=== PATIENT | female | born 1940 | race Native Hawaiian/Other Pacific Islander ===

== ENCOUNTER 2019-07-25 10:41 | Inpatient (IN) | payer OTHER ==
[~2019-07-25] VITALS: Ht 157.5 cm; Wt 65.6 kg
[2019-07-25 12:00] VITALS: BP 119/63; TEMP 98.6
[2019-07-25 12:44] LABS: PLATELET COUNT 340 K/uL (152-353)
[2019-07-25 13:22] LABS: POTASSIUM 3.7 mmol/L (3.6-5.2)
[2019-07-25 14:15] VITALS: BP 119/63; TEMP 98.6; Ht 157.5 cm; Wt 65.6 kg
--- NOTE | 2019-07-25 14:22 | NUR ---
1400 PPPP ROUNDING: PT IS ABLE TO USE THE BATHROOM ON HER OWN WITH MINIMAL ASSISTANCE. PT IS LAYING IN BED ASLEEP POSITIONED ON HER RIGHT SIDE, BED IS LOWERED AND LOCKED WITH THE CALL LIGHT WITHIN REACH.
--- NOTE | 2019-07-25 15:50 | NUR ---
1545 DR ALLISON IN ROOM AT THIS TIME. NEW ORDERS REC'D AND TELE APPLIED AT THIS TIME.
[2019-07-25 16:00] VITALS: BP 123/67; TEMP 101.8
--- NOTE | 2019-07-25 18:03 | NUR ---
1211 INFORMED PT HAD NOT VOIDED SINCE ADMISSION. ENCOURAGED PT TO GET UP TO ATTEMPT TO VOID. PT STATED SHE HAS NOT HAD ENOUGH OF INTAKE TO BE ABLE TO VOID. WILL CON'T TO MONIOTR
[2019-07-25] MEDS ORDERED: SPIRIVA HANDIH18 MCG INH (18:12)
[2019-07-25 20:00] VITALS: BP 103/47; TEMP 100.2
[2019-07-26] VITALS: BP 110/46; TEMP 99.5
[2019-07-26 04:01] VITALS: BP 122/62; TEMP 100.5
[2019-07-26 05:11] LABS: PLATELET COUNT 270 K/uL (152-353)
[2019-07-26 05:37] LABS: POTASSIUM 3.4 mmol/L (3.6-5.2)
[2019-07-26 08:00] VITALS: BP 116/63; TEMP 99.2
[2019-07-26 12:00] VITALS: BP 117/55; TEMP 98.6
[2019-07-26 16:00] VITALS: BP 119/62; TEMP 97.9
[2019-07-26 20:00] VITALS: BP 126/62; TEMP 102.4
[2019-07-27 00:24] VITALS: BP 106/53; TEMP 99.5
--- NOTE | 2019-07-27 03:30 | NUR ---
PT HAVING MULTIPLE BM'S THIS NIGHT. STOOL POSITIVE FOR C-DIFF.
--- NOTE | 2019-07-27 03:31 | NUR ---
07/26/19 2300: PT STRAIT CATHED FOR URINE SPECIMEN. PT TOLERATED WELL.
[2019-07-27 04:00] VITALS: BP 115/73; TEMP 100.6
[2019-07-27 05:10] LABS: PLATELET COUNT 257 K/uL (152-353)
--- NOTE | 2019-07-27 05:23 | NUR ---
07/27/19 0520: LAB CALLED WITH CRITICAL WBC OF 25.5. ER NOTIFIED OF RESULTS. NO ORDER RECEIVED.
[2019-07-27 05:26] LABS: POTASSIUM 4.1 mmol/L (3.6-5.2)
[2019-07-27 08:00] VITALS: BP 126/72; TEMP 98.7
[2019-07-27 12:00] VITALS: BP 116/64; TEMP 98.6
[2019-07-27 16:00] VITALS: BP 117/60; TEMP 98.7
--- NOTE | 2019-07-27 19:55 | NUR ---
PRN BREATHING TX. NOT NEEDED AT THIS TIME. PTS O2 SAT IS 98% ON RA. AND BREATHS WERE CLEAR THROUGHOUT WITH NO RD NOTED.
[2019-07-27 20:00] VITALS: BP 108/55; TEMP 98.4
--- NOTE | 2019-07-27 22:00 | NUR ---
Pt is resting in bed with eyes opened at this time. Uses call light for assistance with tramsfer to bsc. No acute distress or c/o pain or discomfort voiced by pt. Call light is within reach. Will continue to monitor.
[2019-07-28] VITALS (7 sets, daily range): BP systolic 11–133; BP diastolic 54–71; TEMP 97.9–98.5
[2019-07-28 04:11] LABS: PLATELET COUNT 248 K/uL (152-353)
[2019-07-28 04:28] LABS: POTASSIUM 3.4 mmol/L (3.6-5.2)
--- NOTE | 2019-07-28 04:30 | NUR ---
Lab called to report critical wbc lab value of 20.1. Lab value is trending down from previous 25.5. Will continue to monitor.
--- NOTE | 2019-07-28 21:57 | NUR ---
Patient is resting with eyes opened at this time. No acute distress noted. Call light is within reach and pt uses call light for assistance with transfers to bsc. Prn pericare is provided and barrier cream is being applied to pts buttocks. Bed is in low position. Will continue to monitor.
--- NOTE | 2019-07-29 03:09 | NUR ---
Pt calls for assistance to bsc. Continues to have small amount of loose bm this shift. Barrier cream is being applied to red area on pts buttocks. Medi- honey ointment was applied to open area between 4 and 5 toes on right foot. Area was covered with 4 x 4 and secured with paper tape. Pt stated, " that the area has been opened on right foot for a couple of years". Pt's gown was changed and pt was wiped down with wet cloth and hair was combed. No acute distress noted. Call light is within reach, and bed is in low position. Will continue to monitor.
[2019-07-29 04:00] VITALS: BP 121/68; TEMP 98.2
[2019-07-29 04:41] LABS: PLATELET COUNT 276 K/uL (152-353)
[2019-07-29 04:47] LABS: POTASSIUM 3.6 mmol/L (3.6-5.2)
[2019-07-29 08:00] VITALS: BP 126/66; TEMP 98.4
--- NOTE | 2019-07-29 11:10 | NUR ---
DAUGHTER CALLED NURSE TO PATIENTS ROOM. UPON ENTERING PATIENTS ROOM PATIENT NOTED VOMITING. APPROX. 200 ML OF YELLOW EMESIS NOTED WITH FOOD PARTICLES. PATIENT GIVEN ZOFRAN 4MG IV PUSH. IV FLUIDS DISCONTINUED PER AND STAT CHEST X-RAY ORDERED. PATIENT REPOSITIONED UP IN HIGH FOWLERS POSITION NOTED O2 SATS 96% ON RA, RR-21.
[2019-07-29 12:00] VITALS: BP 108/63; TEMP 97.8
--- NOTE | 2019-07-29 12:34 | NUR ---
IN THE PATIENTS ROOM AND ORDERED FOR PATIENT TO GET AN ADDITIONAL ZOFRAN 4 MG IV PUSH. ZOFRAN GIVEN ORDERED. APPROX 100 ML OF YELLOW EMESIS NOTED. WILL CONTINUE TO MONITOR FOR NO NAUSEA
[2019-07-29 16:00] VITALS: BP 124/70; TEMP 98.1
[2019-07-29 20:00] VITALS: BP 110/56; TEMP 98.1
--- NOTE | 2019-07-29 22:00 | NUR ---
Pt resting in bed with eyes opened. No acute distress noted. Pt uses call light to call for assistance to transfer to bs. Prn ruma-care is provided and barrier cream is applied to buttocks for redness and irritation. Medi-honey ointment is being applied to opened area between 4 & 5th toes on right foot, and covered with gauze and secured with paper tape. IV site to left forearm is saline locked, and flushed with no problems. Pt stated, "that she continues to feel better and is ready to go home". No acute distress noted or c/o pain or discomfort voiced, bed is in low position, and call light within reach. Will continue to monitor.
[2019-07-30] VITALS: BP 122/62; TEMP 97.7
--- NOTE | 2019-07-30 01:49 | NUR ---
Pt resting with eyes opened at this time. Took po and iv abx but refused Colestyramine powder mixed with apple juice, and stated, "that she felt as if drinking it would make her nauseous. But stated also, "that she was otherwise okay". Pt continues to use call light for assistance with transfers to bsc. No bm's noted or reported so far this shift. Will continues to monitor. Call light is within reach and bed is in low position.
[2019-07-30 04:00] VITALS: BP 124/67; TEMP 98
[2019-07-30 04:31] LABS: PLATELET COUNT 318 K/uL (152-353)
[2019-07-30 04:44] LABS: POTASSIUM 3.5 mmol/L (3.6-5.2)
[2019-07-30 08:00] VITALS: BP 144/63; TEMP 98.1
[2019-07-30 12:00] VITALS: BP 139/69; TEMP 97.8
--- NOTE | 2019-07-30 15:22 | NUR ---
PATIENTS IV IN HER LEFT HAND INFULTRATED. NS WAS RUNNING AT 100 ML/HR. PATIENTS HAND WAS ELIVATED AND A WARM COMPRESS WAS PUT ON IT. PATIENT STATES SHE IS IN NO PAIN
[2019-07-30 16:00] VITALS: BP 119/70; TEMP 95.7
[2019-07-30 20:00] VITALS: BP 115/60; TEMP 98.2
[2019-07-31] VITALS: BP 130/66; TEMP 98
[2019-07-31 04:00] VITALS: BP 141/69; TEMP 97.9
[2019-07-31 08:00] VITALS: BP 138/68; TEMP 97.4
[2019-07-31 12:00] VITALS: BP 142/64; TEMP 98.4
[2019-07-31] MEDS ORDERED: Vancocin HCl 125MG C PO (14:44)
--- NOTE | 2019-07-31 15:16 | NUR ---
DR ALLISON DISCONTINUED THE TELEMETRY. PATIENT IS TOLERATING IT WELL
--- NOTE | 2019-07-31 16:43 | NUR ---
PATIENT ASKED FOR SOME MAALOX BEFORE SHE WAS DISCHAREGED AND DR ALLISON ORDER 30MLS OF MAALOX
== END 2019-07-31 16:23 | disposition home or self-care (01) | DRG 372 ==
LOC: MED/SURG 10:41
PROVIDERS: ADMIT Internal Medicine
DX: A04.72 Enterocolitis due to Clostridium difficile, not specified as recurrent (principal); N39.0 Urinary tract infection, site not specified; E86.0 Dehydration; K21.9 Gastro-esophageal reflux disease without esophagitis; M15.8 Other polyosteoarthritis; R62.7 Adult failure to thrive; D72.828 Other elevated white blood cell count; J44.9 Chronic obstructive pulmonary disease, unspecified; N81.10 Cystocele, unspecified; K62.3 Rectal prolapse
CPT/HCPCS: 36415; 80048; 80053; 81000; 84439; 84443; 85007; 85027; 87015; 87040; 87045; 87088; 87324; 87449; 87502; 87899; 96361; 96365; 96367; 96372; 96375; J0696; J1650; J2405; J3370; J3490

== ENCOUNTER 2019-10-03 14:30 | Outpatient (CLI) | payer OTHER ==
[~2019-10-03 14:30] MED LIST: SPIRIVA HANDIH18 MCG INH; Vancocin HCl 125MG C PO
== END 2019-10-03 19:31 | disposition home or self-care (01) ==
LOC: LAB 14:30
DX: A04.72 Enterocolitis due to Clostridium difficile, not specified as recurrent (principal); N39.0 Urinary tract infection, site not specified
CPT/HCPCS: 87088

== ENCOUNTER 2019-10-05 09:19 | Outpatient (CLI) | payer OTHER ==
[2019-10-05 09:54] LABS: PLATELET COUNT 421 K/uL (152-353)
[2019-10-05 10:47] LABS: POTASSIUM 4.4 mmol/L (3.6-5.2)
== END 2019-10-05 16:00 | disposition home or self-care (01) ==
LOC: LABW 09:19
PROVIDERS: Internal Medicine
DX: A04.72 Enterocolitis due to Clostridium difficile, not specified as recurrent (principal); J44.9 Chronic obstructive pulmonary disease, unspecified; Z79.899 Other long term (current) drug therapy
CPT/HCPCS: 36415; 80053; 80061; 84439; 84443; 85027

== ENCOUNTER 2020-05-16 10:21 | Outpatient (CLI) | payer OTHER | END 2020-05-16 20:43 | disposition home or self-care (01) | LOC: LABW 10:21 | DX: R19.7 Diarrhea, unspecified (principal) | CPT/HCPCS: 87324; 87449 ==

== ENCOUNTER 2020-07-04 14:27 | Outpatient (CLI) | payer OTHER | END 2020-07-04 19:06 | disposition home or self-care (01) | LOC: LAB 14:27 | DX: R19.7 Diarrhea, unspecified (principal) | CPT/HCPCS: 87324; 87449 ==

== ENCOUNTER 2022-02-09 15:05 | Outpatient (CLI) | payer OTHER | END 2022-02-09 19:06 | disposition home or self-care (01) | LOC: RAD 15:05 | PROVIDERS: ATTEND Orthopaedic Surgery | DX: M79.671 Pain in right foot (principal); M79.672 Pain in left foot ==

== ENCOUNTER 2022-03-02 14:53 | Outpatient (CLI) | payer OTHER | END 2022-03-02 18:55 | disposition home or self-care (01) | LOC: US 14:53 | PROVIDERS: ATTEND Registered Nurse | DX: M79.89 Other specified soft tissue disorders (principal) ==

== ENCOUNTER 2022-08-05 09:21 | Outpatient (CLI) | payer OTHER | END 2022-08-05 19:49 | disposition home or self-care (01) | LOC: RAD 09:21 | PROVIDERS: ATTEND Registered Nurse | DX: R06.09 Other forms of dyspnea (principal) ==